=== PATIENT | male | born 1930 | race Caucasian/White ===

== ENCOUNTER 2018-12-25 12:25 | Emergency (ER) | payer OTHER ==
[~2018-12-25] VITALS: Ht 152.4 cm; Wt 95.7 kg
[2018-12-25] MEDS ORDERED: TOPROL XL50 MG (13:00)
[2018-12-25] MEDS ORDERED: ASA81 MG (13:01)
[2018-12-25] MEDS ORDERED: ZESTRIL40 M1 (13:01)
[2018-12-25] MEDS ORDERED: LIPITOR20 MG (13:04)
[2018-12-25] MEDS ORDERED: NORVASC5 MG (13:07)
== END 2018-12-25 14:16 | disposition home or self-care (01) ==
LOC: ER 12:25
DX: S00.83XA Contusion of other part of head, initial encounter (principal); S80.211A Abrasion, right knee, initial encounter; S60.812A Abrasion of left wrist, initial encounter; S19.89XA Other specified injuries of other specified part of neck, initial encounter; W18.31XA Fall on same level due to stepping on an object, initial encounter; Y93.89 Activity, other specified; Y92.59 Other trade areas as the place of occurrence of the external cause; Y99.8 Other external cause status